=== PATIENT | female | born 1960 | race Caucasian/White ===

== ENCOUNTER → 2018-11-27 | Outpatient (CLI) | payer BC ==
--- NOTE | 2018-11-27 17:11 | REPMRS ---
Patient History The patient states she had a clinical breast exam in 11/2018. Patient is postmenopausal. Family history of breast cancer under age 50 in paternal aunt. Benign US guided breast biopsy of the left breast, 2012. No Hormone Replacement Therapy 3D TOMOSYNTHESIS WAS PERFORMED. [facility]%. Digital Woman Screen Mammo: November 27, 2018 - Exam #: [id number] Bilateral CC and MLO view(s) were taken. Technologist: Dorina Ramon, Technologist Prior study comparison: January 21, 2017, bilateral digital woman screen mammo, performed at [facility]. FINDINGS: There are scattered fibroglandular densities. There has been no change in the appearance of the mammogram from the prior studies. There is a mild amount of residual fibroglandular tissue which is fairly symmetric. There is no interval development of dominant mass, architectural distortion, or clustered microcalcification suggestive of malignancy. Assessment: BI-RADS/ACR category 1 mammogram. Negative Mammogram. Recommendation Routine screening mammogram in 1 year (for women over age 40). This mammogram was interpreted with the aid of an FDA-approved computer-aided dectection system. Electronically Signed By: Henry Mack MD 11/27/18 2048
--- NOTE | 2018-12-02 12:51 | DEXA ---
AP SPINE L1 - L4 1.034 -1.3 -0.2 LT FEMUR TOTAL 1.119 0.9 1.7 LT NECK 0.924 -0.8 0.4 RT FEMUR TOTAL 1.084 0.6 1.5 RT NECK 0.988 -0.4 0.8 TOTAL BODY TOTAL OTHER COMMENTS: Normal bone densitometry of the hips. There is low bone density of the spine. FOLLOW-UP: Recommendation for the next bone density exam: 2 years. ANISA
== END ==
LOC: M WHC 15:03
PROVIDERS: ATTEND Obstetrics & Gynecology
DX: Z13.21 Encounter for screening for nutritional disorder (principal); Z13.820 Encounter for screening for osteoporosis; Z78.0 Asymptomatic menopausal state

== ENCOUNTER 2019-01-10 13:27 | Emergency (ER) | payer BC ==
[~2019-01-10] VITALS: Ht 160 cm; Wt 107.0 kg
[2019-01-10 13:27] VITALS: BP 152/89
[2019-01-10] MEDS ORDERED: OMEP-221 (13:33)
[2019-01-10] MEDS ORDERED: LOSA50TA88 (13:33)
[2019-01-10] MEDS ORDERED: SULF1TAB93 (13:33)
[2019-01-10] MEDS ORDERED: MICR1TAB5 (13:33)
[2019-01-10] MEDS ORDERED: LEVO150T7 (13:33)
--- NOTE | 2019-01-10 15:09 | REP ---
Clinical: right calf pain Technique: Mack scale and color Doppler evaluation using linear high frequency transducer. Findings: Ultrasound examination of the right lower extremity deep venous structures from the common femoral vein to the popliteal vein demonstrates normal compressibility flow and wave patterns in response to respiration and augmentation. There is no evidence for deep venous thrombosis. Impression: No evidence for deep venous thrombosis. Electronically Signed by Jeferson Mehta MD 01/10/2019 03:01 P
== END 2019-01-10 16:12 | disposition home or self-care (01) ==
LOC: M ED 13:27
DX: L03.115 Cellulitis of right lower limb (principal); F17.200 Nicotine dependence, unspecified, uncomplicated; E78.00 Pure hypercholesterolemia, unspecified; E03.9 Hypothyroidism, unspecified; I10 Essential (primary) hypertension; G47.30 Sleep apnea, unspecified; K21.9 Gastro-esophageal reflux disease without esophagitis; Z79.899 Other long term (current) drug therapy

== ENCOUNTER 2019-01-30 16:36 | Emergency (ER) | payer BC ==
[~2019-01-30] VITALS: Ht 160 cm; Wt 107.7 kg
[~2019-01-30 16:36] MED LIST: LEVO150T7; LOSA50TA88; MICR1TAB5; OMEP-221; SULF1TAB93
--- NOTE | 2019-01-30 18:22 | REPVR ---
PROCEDURE INFORMATION: Exam: US Duplex Right Lower Extremity Veins, Limited Exam date and time: 01/30/2019 5:42 PM Clinical history: 58 years old, female; Pain; Leg, lower; Right; Additional info: Pain/redness TECHNIQUE: Imaging protocol: Real-time Duplex ultrasound of the Right Lower Extremity with 2-D walters scale, color Doppler flow and spectral waveform analysis with image documentation. Limited exam was focused on the right lower extremity veins. COMPARISON: US Duplex, Ext,LOWER veins,unilat 01/10/2019 2:54 PM FINDINGS: Right deep veins: The common femoral, femoral, proximal profunda femoral and popliteal veins are patent without thrombus. Normal Doppler waveforms. Normal compressibility and/or augmentation response. There is a markedly enlarged of a superficial femoral vein and complete thrombosis and distention through the calf and consistent with severe superficial thrombophlebitis. IMPRESSION: No evidence of deep vein thrombosis. Large distended tortuous superficial thrombosed vein along the calf at the palpable area. This is consistent with severe superficial thrombophlebitis. There is no evidence of venous return is distended superficial vein. Electronically signed by: Chidi Javire On 01/30/2019 18:22:11 PM
[2019-01-30] MEDS ORDERED: DICL50TAB PO (18:33)
[2019-01-30 18:34] VITALS: BP 143/86
== END 2019-01-30 18:42 | disposition home or self-care (01) ==
LOC: M ED 18:14
DX: I80.01 Phlebitis and thrombophlebitis of superficial vessels of right lower extremity (principal); I10 Essential (primary) hypertension; E78.5 Hyperlipidemia, unspecified; G47.30 Sleep apnea, unspecified; K21.9 Gastro-esophageal reflux disease without esophagitis; E03.9 Hypothyroidism, unspecified; Z79.899 Other long term (current) drug therapy

== ENCOUNTER → 2019-12-28 | Outpatient (CLI) | payer BC ==
[~2019-12-28] MED LIST changes: +DICL50TAB PO
--- NOTE | 2019-12-28 15:45 | REPMRS ---
Patient History The patient states she had a clinical breast exam in November 2019. Family history of breast cancer under age 50 in paternal aunt. Benign US guided breast biopsy of the left breast, 2012. No Hormone Replacement Therapy Digital Woman Screen Mammo: December 28, 2019 - Exam #: [id number] Bilateral CC and MLO view(s) were taken. Technologist: Tanya Mchugh Technologist Prior study comparison: November 27, 2018, bilateral digital woman screen mammo performed at [facility]. January 21, 2017, bilateral digital woman screen mammo, performed at [facility]. FINDINGS: The breast tissue is almost entirely fat. The Volpara volumetric breast density category is: A. There is a needle biopsy marker clip in the left breast. There has been no change in the appearance of the mammogram from the prior studies. There is no interval development of dominant mass, architectural distortion, or grouped microcalcification typical of malignancy. 3-D tomosynthesis shows no additional findings. Assessment: BI-RADS/ACR category 2 mammogram. Benign Findings. Recommendation Routine screening mammogram of both breasts in 1 year (for women over age 40). This patient's Lifetime Breast Cancer RIsk is estimated at 10.9 %. This mammogram was interpreted with the aid of an FDA-approved computer-aided dectection system. Electronically Signed By: Julius Mullen MD 12/28/19 [id number]
== END ==
LOC: M WHC 07:50
PROVIDERS: ATTEND Obstetrics & Gynecology
DX: Z12.31 Encounter for screening mammogram for malignant neoplasm of breast (principal)

== ENCOUNTER → 2020-12-28 | Outpatient (CLI) | payer BC ==
[~2020-12-28] MED LIST changes: +BACTDSTA; -SULF1TAB93
--- NOTE | 2020-12-28 11:14 | REPMRS ---
Patient History The patient states she had a clinical breast exam in November 2020. Family history of breast cancer under age 50 in paternal aunt. Benign US guided breast biopsy of the left breast, 2012. No Hormone Replacement Therapy No breast complaints today Patient signed the MRS sheet 1st covid vaccine in July(doesn't know date)-left arm-Moderna 2nd covid vaccine in August(doesn't know date)-left arm Priors on PACS Patient Identification Verified Digital Woman Screen Mammo: December 28, 2020 - Exam #: [id number] Bilateral CC and MLO view(s) were taken. Technologist: Eduarda Olivares, Technologist Prior study comparison: December 28, 2019, bilateral digital woman screen mammo performed at [facility]. November 27, 2018, bilateral digital woman screen mammo performed at [facility]. January 21, 2017, bilateral digital woman screen mammo, performed at [facility]. FINDINGS: The breast tissue is almost entirely fat. The Volpara volumetric breast density category is: A. There has been no change in the appearance of the mammogram from the prior studies. There is no interval development of dominant mass, architectural distortion, or grouped microcalcification typical of malignancy. 3-D tomosynthesis shows no additional findings. Assessment: BI-RADS/ACR category 1 mammogram. Negative Mammogram. Recommendation Routine screening mammogram of both breasts in 1 year (for women over age 40). This patient's [facility] Lifetime Breast Cancer RIsk is estimated at 10.5 %. This mammogram was interpreted with the aid of an FDA-approved computer-aided dectection system. Electronically Signed By: Julius Mullen MD 12/28/20 [id number]
--- NOTE | 2020-12-28 13:22 | DEXAMM ---
INDICATION: SCR FOR OSTEOPOROSIS/Z13.820. COMPARISON: Comparison study November 27, 2018. TECHNIQUE: Bone density was measured using dual-energy x-ray absorptionmetry (DEXA). FINDINGS: AP SPINE L1-L4 BMD 1.074 g/cm2 Young Adult T-Score 4-1.0 Age Matched Z-Score 0.3. LT FEMUR, TOTAL BMD 1.102 g/cm2 Young Adult T-Score 0.8 Age Matched Z-Score 1.7. LT NECK BMD 0.905 g/cm2 Young Adult T-Score -1.0 Age Matched Z-Score 0.3. RT FEMUR, TOTAL BMD 1.046 g/cm2 Young Adult T-Score 0.3 Age Matched Z-Score 1.3. RT NECK BMD 0.903 g/cm2 Young Adult T-Score -1.0 Age Matched Z-Score 0.3. IMPRESSION: There is low bone density of the spine. There is low bone density of the left hip. There is low bone density of the right hip. The density of the spine has increased 3.9% since the initial exam on November 27, 2018. The density of the left hip has decreased 1.5% since initial exam on November 27, 2018. The density of the right hip has decreased 3.5% since the initial exam on November 27, 2018. FOLLOW-UP: Recommendation for the next bone density exam: 2 years. <Electronically signed by Julius Mullen > 12/28/20 [id number]
== END ==
LOC: M WHC 10:14
PROVIDERS: ATTEND Obstetrics & Gynecology
DX: Z12.31 Encounter for screening mammogram for malignant neoplasm of breast (principal); Z13.820 Encounter for screening for osteoporosis; Z80.3 Family history of malignant neoplasm of breast; M85.88 Other specified disorders of bone density and structure, other site; M85.851 Other specified disorders of bone density and structure, right thigh; M85.852 Other specified disorders of bone density and structure, left thigh

== ENCOUNTER → 2022-01-10 | Outpatient (CLI) | payer BC ==
[~2022-01-10] MED LIST changes: +LOSA50TA28; -LOSA50TA88; -OMEP-221; +OMEP40CA5
== END ==
LOC: M WHC 07:19
PROVIDERS: ATTEND Advanced Practice Midwife
DX: Z12.31 Encounter for screening mammogram for malignant neoplasm of breast (principal)

== ENCOUNTER → 2022-10-23 | Outpatient (CLI) | payer BC | LOC: M RAD 08:09 | PROVIDERS: ATTEND Physician Assistant | DX: S52.512A Displaced fracture of left radial styloid process, initial encounter for closed fracture (principal); S52.612A Displaced fracture of left ulna styloid process, initial encounter for closed fracture; X58.XXXA Exposure to other specified factors, initial encounter; Y92.9 Unspecified place or not applicable; Y93.9 Activity, unspecified; Y99.9 Unspecified external cause status ==

== ENCOUNTER → 2023-02-08 | Outpatient (CLI) | payer BC | LOC: M WHC 10:02 | PROVIDERS: ATTEND Obstetrics & Gynecology | DX: Z12.31 Encounter for screening mammogram for malignant neoplasm of breast (principal); Z13.820 Encounter for screening for osteoporosis ==